=== PATIENT | female | born 1980 ===

== ENCOUNTER 2022-03-02 14:11 | Inpatient (IN) | payer OTHER ==
[~2022-03-02] VITALS: Ht 162.6 cm; Wt 92.5 kg
[2022-03-02] MEDS ORDERED: PRENATAL + DHA1 EAC1 (15:54)
== END 2022-03-04 14:10 | disposition home or self-care (01) | DRG 807 ==
LOC: LDR 14:11 → OB/GYN 14:11
PROVIDERS: ADMIT Obstetrics & Gynecology; ATTEND Obstetrics & Gynecology
PROC: 10E0XZZ Delivery of Products of Conception, External Approach (ICD-10-PCS; principal; 2022-03-02)
PROC: 4A1HXCZ Monitoring of Products of Conception, Cardiac Rate, External Approach (ICD-10-PCS; 2022-03-02)
DX: O80 Encounter for full-term uncomplicated delivery (principal); Z37.0 Single live birth; Z3A.39 39 weeks gestation of pregnancy; Z20.822 Contact with and (suspected) exposure to COVID-19